=== PATIENT | male | born 1955 | race Caucasian/White ===

== ENCOUNTER → 2023-05-06 12:47 | Outpatient (REF) | payer MEDICARE, SELFPAY | LOC: HWRAD 12:47 | PROVIDERS: ATTENDING PHYSICIAN Family Medicine | DX: I25.10 Atherosclerotic heart disease of native coronary artery without angina pectoris (principal); I25.84 Coronary atherosclerosis due to calcified coronary lesion | CPT/HCPCS: 75571 ==

== ENCOUNTER → 2023-07-30 14:04 | Outpatient (REF) | payer MEDICARE, OTHER, SELFPAY ==
--- NOTE | 2023-07-30 15:38 | CARDSERVDEF ---
Echocardiogram with Definity completed after protocol screening completed. Allergies verified.
Patent IV site: _Left hand 22 G PC____
IV site flushed with 0.9% NaCl pre and post administration.
Diluted bolus method utilized to enhance visualization of ventricular ring.
Total volume given: __5__ mL
Patient tolerated all procedures well without complications.
Heplock D/C ed at 1538, site clear, no redness, no edema. Pressure held ,no bleeding, 2x2 applied and taped. Pt offers no complaints.
== END ==
LOC: RCS 14:04
PROVIDERS: ATTENDING PHYSICIAN Internal Medicine Cardiovascular Disease; FAMILY PHYSICIAN Family Medicine
DX: R07.2 Precordial pain (principal); R94.31 Abnormal electrocardiogram [ECG] [EKG]
CPT/HCPCS: 93017; 93350; Q9957

== ENCOUNTER → 2023-11-25 15:46 | Outpatient (REF) | payer MEDICARE, OTHER, SELFPAY | LOC: RAD 15:46 | PROVIDERS: ATTENDING PHYSICIAN Specialist; FAMILY PHYSICIAN Family Medicine | DX: N20.0 Calculus of kidney (principal) | CPT/HCPCS: 74018 ==

== ENCOUNTER → 2024-02-01 13:20 | Outpatient (REF) | payer MEDICARE, OTHER, SELFPAY | LOC: RAD 13:20 | PROVIDERS: ATTENDING PHYSICIAN Family Medicine | DX: J20.8 Acute bronchitis due to other specified organisms (principal) | CPT/HCPCS: 71046 ==

== ENCOUNTER → 2024-11-20 12:36 | Outpatient (REF) | payer MEDICARE, OTHER, SELFPAY | LOC: PAVMRI 12:36 | PROVIDERS: ATTENDING PHYSICIAN Anesthesiology Pain Medicine; FAMILY PHYSICIAN Family Medicine | DX: M54.15 Radiculopathy, thoracolumbar region (principal) | CPT/HCPCS: 72148 ==